=== PATIENT | female | born 1980 | race Caucasian/White ===

== ENCOUNTER 2020-08-04 09:48 | Emergency (ER) | payer OTHER, SELFPAY ==
[2020-08-04 09:56] VITALS: BP 165/56; PULSE 93; RESP 16; TEMP 36.9; O2SAT 99
--- NOTE | 2020-08-04 10:08 | ED.BACK ---
HPI - Back Pain/Injury General Chief Complaint: Back Pain/Injury Stated Complaint: pulled muscle History of Present Illness HPI Narrative: This is a 39-year-old female comes in complaining of back pain for the past 3 days patient states that she has been taking some medicine that has worked but has continually work last the last. Patient states approximately 3 days ago she threw a 50 pound bag of cat food over her shoulder and she is been having pain every since. Last night patient was unable to sleep due to not being able to get comfortable and pain increasing patient is also taking some ibuprofen. Patient states she has had this before. Patient denies having any high blood pressure issues but does not have a primary care provider. Patient denies any dizziness any headaches or any other symptoms at this time Related Data Allergies Allergy/AdvReac Type Severity Reaction Status Date / Time codeine Allergy Intermediate Siezure Verified 08/04/20 10:04 Penicillins Allergy Mild Rash Verified 08/04/20 10:04 Review of Systems Review of Systems: Narrative: CONSTITUTIONAL: Denies fever, chills, or sweats. EYES: Denies visual changes, redness, or discharge. ENT: Denies rhinorrhea, congestion, sore throat, or otalgia. CARDIOVASCULAR:Denies chest pain, palpitations, or edema. RESPIRATORY: Denies cough or dyspnea. GASTROINTESTINAL: Denies abdominal pain, nausea, vomiting, or diarrhea. GENITOURINARY: Denies dysuria or hematuria. SKIN:[Denies rash or itching. MUSCULOSKELETAL: Reports back pain, joint pain, or myalgia. NEUROLOGIC: Denies headache, numbness, or weakness. PSYCHIATRIC:Denies anxiety or depression [facility] Comments At time as signature, I have reviewed and agree with nursing past medical, social, surgical and family history. Please see nursing chart for further information. There is no relevant family history pertinent to the presenting complaint. Exam Narrative: Exam Narrative: GENERAL:Well-appearing, well-nourished, and in no acute distress. HEAD:Normocephalic, atraumatic. EYES: PERRLA and EOMI. ENT: Nares clear, no rhinorrhea or epistaxis. Mucous membranes moist. NECK: Supple. CHEST: Clear to auscultation. No respiratory distress. HEART: Regular rate and rhythm. No murmur heard. Normal peripheral pulses. ABDOMEN: Soft, nontender, nondistended, normal active bowel sounds. EXTREMITIES: Decreased range of motion pain on the right side of the back no pain with palpitation. No edema. SKIN: Warm, dry, no rash. NEURO: No focal deficits. Alert and oriented x3. Awake rhinorrhea Patient declines x-ray at this time Course Vital Signs Vital signs: Vital Signs Temperature 98.5 F 08/04/20 09:56 Pulse Rate 93 08/04/20 09:56 Respiratory Rate 16 08/04/20 09:56 Blood Pressure 165/56 H 08/04/20 09:56 Pulse Oximetry 99 08/04/20 09:56 Temperature 98.5 F 08/04/20 09:56 Pulse Rate 93 08/04/20 09:56 Respiratory Rate 16 08/04/20 09:56 Blood Pressure 165/56 H 08/04/20 09:56 Pulse Oximetry 99 08/04/20 09:56 MDM - Back Pain/Injury Differential Diagnosis Differential diagnosis: Likely lumbar radiculopathy, strain of lumbar region and thoracic back pain Discharge Plan Discharge Clinical Impression: Hypertension Qualifiers: Hypertension type: unspecified Qualified Code(s): I10 - Essential (primary) hypertension Thoracic back pain Qualifiers: Chronicity: acute Back pain laterality: right Qualified Code(s): M54.6 - Pain in thoracic spine Patient Disposition: Home, Self-Care Condition: Stable Instructions: Antibiotic Form, Hypertension (ED), Back Pain (ED) Additional Instructions: Your blood pressure was elevated in the clinic today, I feel that this is due to your acute illness rather than essential hypertension. please follow-up with your regular doctor for further evaluation and monitor for evaluation of hypertension Please [facility] schedule a followup visit with your personal physician with
== END 2020-08-04 10:29 | disposition home or self-care (01) ==
PROVIDERS: Emergency Provider Nurse Practitioner Family
DX: M54.6 Pain in thoracic spine (principal); I10 Essential (primary) hypertension
CPT/HCPCS: 99213; G0463

== ENCOUNTER 2020-10-13 17:12 | Emergency (ER) | payer OTHER, SELFPAY ==
--- NOTE | ~2020-10-13 | XR_ITS ---
EXAMINATION: XR heel LT min 2V DATE: 10/13/2020 17:36 INDICATION: Left heel pain. TECHNIQUE: 2 views of left calcaneus were obtained. COMPARISON: None. FINDINGS: Bone alignment is normal. No fracture. Joint spaces are normal. There are enthesophytes at the posterior and plantar aspects of calcaneal tuberosity. IMPRESSION: 1. No fracture. Reviewed, dictated and finalized at location A. IMPRESSION: 1. No fracture.
[2020-10-13 17:16] VITALS: BP 156/82; PULSE 80; RESP 20; TEMP 36.8; O2SAT 100
--- NOTE | 2020-10-13 17:20 | ED.LOWEXIN ---
HPI - Extremity Injury (Lower) General Chief Complaint: Extremity Injury, Lower Stated Complaint: Possible injury to left Ankle and Heel Time Seen by Provider: 10/13/20 17:20 Source: patient and RN notes reviewed Mode of arrival: ambulatory Limitations: no limitations History of Present Illness HPI Narrative: 40-year-old female presents to the [facility] with complaints of left heel and ankle pain for 3 days. Related Data Home Medications Medication Instructions Recorded Confirmed No Home Medications 10/13/20 10/13/20 Allergies Allergy/AdvReac Type Severity Reaction Status Date / Time codeine Allergy Intermediate Siezure Verified 10/13/20 17:44 Penicillins Allergy Mild Rash Verified 10/13/20 17:44 Review of Systems Review of Systems: All systems reviewed & are unremarkable except as noted in HPI and below Constitutional: Constitutional: Reports no additional constitutional complaints, Denies chills and Denies fever(s) Eyes: Eyes: Reports no additional eye complaints ENT: Reports system reviewed and no additional complaints, except as documented Cardiovascular: Cardiovascular: Reports no additional cardiovascular complaints Respiratory: Respiratory: Reports no additional respiratory complaints Gastrointestinal: Gastrointestinal: Reports no additional gastrointestinal complaints Musculoskeletal: Musculoskeletal: Reports as per HPI Comments: Left heel pain Integumentary/Breasts: Skin/Breast: Reports system reviewed and no additional complaints, except as docu Neurologic: Reports system reviewed and no additional complaints, except as documented Psychiatric: Psychiatric: Reports no additional psychiatric complaints Allergic/Immunologic: Allergic/Immunologic: Reports no additional allergic/immunologic complaints [facility] Comments Denies any past medical or surgical history. At the time of my signature, I reviewed and agree with the nursing past medical, surgical, social, and family history. There is no relevant family history pertinent to the patient complaint. Exam Const: General: healthy appearing, no acute distress and alert Nutritional Appearance: well nourished and obese Orientation/consciousness: patient oriented x3 Limitations: no limitations HENMT: Head: normal to inspection Eyes: Pupils: Equal, round and reactive pupils present Neck: Neck: normal visual inspection and no lymphadenopathy Chest: Chest palpation & inspection: normal inspection of the chest Resp: Effort & Inspection: normal respiratory effort and no use of accessory muscles Auscultation: clear to auscultation bilaterally, no rales, no rhonchi and no wheezes Cardio: Rate: regular rate Rhythm: regular rhythm Back/Spine/Pelvis: Back: no CVA tenderness Skin: General skin exam: normal color Rashes: no rashes Wounds: no wounds Neuro: General: patient oriented x3, moves all extremities, no meningeal signs and no focal motor deficits Speech: normal speech Gait exam (Neuro): Normal gait present Extrem: Other: Base of left heel pain, tenderness Psych: Appearance: grossly normal and well kempt Mental Status: mental status grossly normal Affect: normal affect Attitude: cooperative Thought content: Yes Normal thought content present Course Course Emergency Course: Discharge instructions reviewed with patient, as well as provided in writing per nursing staff. The instructions also include specific and strict return/GO TO THE ER as well as f/u information. All questions have been answered, and the patient deny any further questions with discharge and discharge plan. Vital Signs Vital signs: Vital Signs Temperature 98.2 F 10/13/20 17:16 Pulse Rate 80 10/13/20 17:16 Respiratory Rate 10/13/20 17:16 Blood Pressure 156/82 H 10/13/20 17:16 Pulse Oximetry 100 10/13/20 17:16 Temperature 98.2 F 10/13/20 17:16 Pulse Rate 80 10/13/20 17:16 Respiratory Rate 10/13/20 17:16 Blood Pressure 156/82 H 0
--- NOTE | 2020-10-13 17:36 | PC.NURSE ---
PT DECLINED WHEELCHAIR TO RADIOLOGY
== END 2020-10-13 18:02 | disposition home or self-care (01) ==
PROVIDERS: Emergency Provider Nurse Practitioner
DX: M77.32 Calcaneal spur, left foot (principal)
CPT/HCPCS: 73650; 99213; G0463

== ENCOUNTER 2022-06-08 18:13 | Emergency (ER) | payer OTHER, SELFPAY ==
[2022-06-08 18:24] VITALS: BP 163/69; PULSE 84; RESP 16; TEMP 36.4; O2SAT 100
--- NOTE | 2022-06-08 18:32 | ED.GENADULT ---
HPI - General Adult General Chief complaint: Dental/Oral Stated complaint: Facial Swelling Source: patient Mode of arrival: ambulatory Limitations: no limitations History of Present Illness HPI narrative: Patient presents for evaluation of right upper dental pain for last 3 days. Pain is sharp, throbbing, 8/10 severity. She has associated right-sided facial swelling. No fever, chills, nausea, vomiting. She is not diabetic. She has been taking 800 mg of ibuprofen with some improvement in her symptoms thereafter. She is aware of the fact that she has dental fractures, which are not new. She does not smoke cigarettes but does smoke marijuana. No additional complaints or concerns. Related Data Allergies Allergy/AdvReac Type Severity Reaction Status Date / Time codeine Allergy Intermediate Siezure Verified 10/13/20 17:44 Penicillins Allergy Mild Rash Verified 10/13/20 17:44 Review of Systems Review of Systems: CONSTITUTIONAL: Denies fever, chills, or sweats. EYES: Denies visual changes, redness, or discharge. ENT: reports right upper dental pain with associated facial swelling. Denies rhinorrhea, congestion, sore throat, or otalgia. CARDIOVASCULAR: Denies chest pain, palpitations, or edema. RESPIRATORY: Denies cough or dyspnea. GASTROINTESTINAL: Denies abdominal pain, nausea, vomiting, or diarrhea. GENITOURINARY: Denies dysuria or hematuria. SKIN: Denies rash or itching. MUSCULOSKELETAL: Denies back pain, joint pain, or myalgia. NEUROLOGIC: Denies headache, numbness, dizziness, or weakness. PSYCHIATRIC: Denies anxiety or depression. [facility] Past Medical History Medical History Fracture of tooth No pertinent past medical history Surgical History Surgical History No pertinent past surgical history Family History Family History Mother Family history non-contributory Social History Social History Substance use: current Substance use type: marijuana Gender identity (if verbalized by the patient): Female Spiritual care concerns: No Exam Narrative: GENERAL: Well-appearing, well-nourished, and in no acute distress. HEAD: Normocephalic, atraumatic. EYES: PERRLA and EOMI. ENT: Nares clear, no rhinorrhea or epistaxis. Mucous membranes moist. Tooth #2 is fracture. There is tenderness in gumline adjacent to tooth #6. There is right maxillary facial swelling NECK: Supple. No adenopathy or masses. No carotid bruits or JVD CHEST: Clear to auscultation. No respiratory distress. No wheezes rales or rhonchi HEART: Regular rate and rhythm. No murmur heard. Normal peripheral pulses. ABDOMEN: Soft, nontender, nondistended, normal active bowel sounds. EXTREMITIES: Normal range of motion. No edema. SKIN: Warm, dry, no rash. NEURO: No focal deficits. Alert and oriented x3. PSYCH: Normal mood and affect. Course Course Emergency Course: this is a 41-year-old female who presented for evaluation of right-sided dental pain. She has a dental fracture on exam. She is allergic to penicillin codeine. Will discharge with clindamycin and hydrocodone. Advise she not smoke. test not performed as she is not sexually active. Follow up with dentist. Go to ER for worsening symptoms. Pt in agreement with plan of care. Level of Care: Express Care Visit Vital Signs Vital signs: Vital Signs Temperature 36.4 C 06/08/22 18:24 Pulse Rate 84 06/08/22 18:24 Respiratory Rate 16 06/08/22 18:24 Blood Pressure 163/69 H 06/08/22 18:24 Pulse Oximetry 100 06/08/22 18:24 Oxygen Delivery Room Air 06/08/22 18:24 Temperature 36.4 C 06/08/22 18:24 Pulse Rate 84 06/08/22 18:24 Respiratory Rate 16 06/08/22 18:24 Blood Pressure 163/69 H 06/08/22 18:24
== END 2022-06-08 18:36 | disposition home or self-care (01) ==
PROVIDERS: Emergency Provider Nurse Practitioner
DX: K08.89 Other specified disorders of teeth and supporting structures (principal); S02.5XXA Fracture of tooth (traumatic), initial encounter for closed fracture; X58.XXXA Exposure to other specified factors, initial encounter; F12.90 Cannabis use, unspecified, uncomplicated
CPT/HCPCS: 99213; G0463